=== PATIENT | male | born 1970 | race Caucasian/White ===

== ENCOUNTER 2024-06-25 10:40 | Outpatient (CLI) | payer BC | END 2024-06-25 10:41 | LOC: SCSMRI 10:40 | PROVIDERS: ATTEND Orthopaedic Surgery | DX: M76.821 Posterior tibial tendinitis, right leg (principal); M76.61 Achilles tendinitis, right leg; M77.51 Other enthesopathy of right foot and ankle; Q78.8 Other specified osteochondrodysplasias ==